=== PATIENT | female | born 1955 | race Caucasian/White ===

== ENCOUNTER 2022-05-18 07:46 | Outpatient (CLI) | payer MEDICARE ==
[2022-05-18] MEDS ORDERED: Iopamidol 370 76% 100 ML VIAL ONE (14:56)
== END 2022-05-18 07:47 | disposition home or self-care (01) ==
LOC: CSHCT 07:46
PROVIDERS: ATTEND Internal Medicine Cardiovascular Disease
DX: Z01.810 Encounter for preprocedural cardiovascular examination (principal); I25.10 Atherosclerotic heart disease of native coronary artery without angina pectoris; I48.19 Other persistent atrial fibrillation; I20.8 Other forms of angina pectoris; Z79.01 Long term (current) use of anticoagulants; K21.9 Gastro-esophageal reflux disease without esophagitis
CPT/HCPCS: 71275; 82565; Q9967